=== PATIENT | male | born 1940 | race Caucasian/White ===

== ENCOUNTER 2018-10-25 21:36 | Inpatient (IN) | payer MEDICARE, MEDICAID ==
[~2018-10-25] VITALS: Ht 182.9 cm; Wt 82.0 kg
--- NOTE | 2018-10-25 22:10 | NUR ---
PT IVY SMITH FROM HOME AFTER PT HAS HAD MULTIPLE CALL IN THE LAST 2 DAYS AFTER PT PUSHED HIS LIFELINE BUTTON AFTER FALLING. MICHAEL REPORTED THEY HAD BEEN TO HIS HOUSE 4 TIMES IN LAST 2 DAYS WITH FIRST TRANSPORT TO [facility]. PT REPORTS "LEGS HURT" AND CAN'T WALK. PT WAS 79% ON RA PER [facility] ADVERTISING SUPERVISOR. 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 PT A+o x 4.
--- NOTE | 2018-10-25 22:17 | NUR ---
report of pt from chaparrita chaves and assuming care of pt at this time.
--- NOTE | 2018-10-25 22:17 | NUR ---
Angelina mcknight in [facility] - 10/25/18 at 2240 by SIXTO report of pt from chaparrita chaves and assuming care of pt at this time.
--- NOTE | 2018-10-25 22:39 | NUR ---
pt to ct via jackie
[2018-10-25 23:11] LABS: ALANINE AMINOTRANSFERASE 35 U/L (12-78); ALBUMIN 3.9 g/dL (3.4-5.0); ANION GAP 9 mmol/L (5-15); CALCIUM 8.8 mg/dL (8.5-10.1); CHLORIDE 113 mmol/L (98-107); CREATININE 1.23 mg/dL (0.7-1.3)
[2018-10-25 23:16] LABS: ALKALINE PHOSPHATASE 58 U/L (45-117); BILIRUBIN,TOTAL 0.9 mg/dL (0.2-1.0); TOTAL PROTEIN 7.3 g/dL (6.4-8.2); TROPONIN I 0.018 ng/mL (0.000-0.045)
[2018-10-25 23:57] LABS: MEAN CORPUSCULAR HEMOGLOBIN 31.6 pg (27.5-34.5); MEAN CORPUSCULAR HGB CONC 34.2 g/dL (33.2-36.2); MEAN CORPUSCULAR VOLUME 92.3 fL (81-97); MEAN PLATELET VOLUME 9.5 fL (7.4-10.4); PLATELET COUNT 160 x10^3/uL (130-400); RED BLOOD COUNT 4.67 x10^6/uL (4.38-5.82); RED CELL DISTRIBUTION WIDTH 13.6 % (9.4-14.8)
[2018-10-26 00:07] LABS: MD YES
[2018-10-26 00:28] LABS: BASOS#(MANUAL) 0.19 x10^3/uL (0-0.1); BASOS% (MANUAL) 1 % (0-1); LYMPH#(MANUAL) 2.63 x10^3/uL (1-3.4); LYMPHS% (MANUAL) 14 % (22-44); MONOS#(MANUAL) 0.75 x10^3/uL (0.3-2.7); MONOS% (MANUAL) 4 % (2-9); SEG#(MANUAL) 15.23 x10^3/uL (1.8-6.8); SEGS% (MANUAL) 81 % (42-75)
[2018-10-26 00:29] LABS: <PLATELET ESTIMATE> ADEQUATE; <PLT MORPHOLOGY> NORMAL PLT MORPH; <RBC MORPHOLOGY> NORMAL
[2018-10-26] MEDS ORDERED: LIDOCAINE 2%,20 ML JEL.PF.APP MM ONE (00:30)
[2018-10-26 00:53] LABS: MICROSCOPIC AUTO
[2018-10-26 00:54] LABS: CULTURE INDICATED? NO
[2018-10-26] MEDS ORDERED: LABETALOL 5MG/ML, 20ML IVPush PRN (02:00)
[2018-10-26] MEDS ORDERED: ACETAMINOPHEN 325 MG TABLET PO PRN (02:00)
--- NOTE | 2018-10-26 02:28 | NUR ---
report of pt to chaparrita almaguer. all questions answered. iv access obtained. pt transported to floor by trauma rn and tech.
[2018-10-26 02:36] VITALS: BP 132/76
[2018-10-26 02:45] VITALS: BP 132/76
[2018-10-26] MEDS ORDERED: LABETALOL 5 MG/ML SYRINGE IVPush PRN (03:00)
[2018-10-26] MEDS: HEPARIN 5,000 UNITS/ML, 1ML SQ SCH ×3 (05:48→20:46)
[2018-10-26 07:49] VITALS: BP 123/72
[2018-10-26] MEDS ORDERED: METOPROLOL TARTRATE 50 MG TABLET PO SCH (09:00)
[2018-10-26] MEDS ORDERED: PLEASE ENTER ALLERGIES MC SCH (12:30)
[2018-10-26] MEDS ORDERED: AMPICILLIN/SULBACTAM 3 GM in SODIUM CHLORIDE 0.9% 100 ML IV SCH (12:30)
[2018-10-26] MEDS: SODIUM CHLORIDE 0.9% 1,000 ML IV SCH ×2 (12:30→20:46)
[2018-10-26] MEDS ORDERED: MAGNESIUM SULFATE PMX 2GM/50ML 50 ML IV ONE ×2 (12:30→14:30)
[2018-10-26 12:44] LABS: BASOPHILS # (AUTO) 0.11 x10^3/uL (0-0.1); BASOPHILS % (AUTO) 1 % (0-1); EOSINOPHILS # (AUTO) 0.08 x10^3/uL (0-0.4); EOSINOPHILS % (AUTO) 1 % (1-7); LYMPHOCYTES # (AUTO) 1.86 x10^3/uL (1-3.4); LYMPHOCYTES % (AUTO) 15 % (22-44); MD NO; MEAN CORPUSCULAR HGB CONC 34.3 g/dL (33.2-36.2); MEAN CORPUSCULAR VOLUME 93.2 fL (81-97); MEAN PLATELET VOLUME 9.5 fL (7.4-10.4); MONOCYTES # (AUTO) 1.06 x10^3/uL (0.2-0.8); MONOCYTES % (AUTO) 8 % (2-9); NEUTROPHILS # (AUTO) 9.44 x10^3/uL (1.8-6.8); NEUTROPHILS % (AUTO) 75 % (42-75); PLATELET COUNT 151 x10^3/uL (130-400); RED BLOOD COUNT 4.12 x10^6/uL (4.38-5.82); RED CELL DISTRIBUTION WIDTH 13.8 % (9.4-14.8)
[2018-10-26 12:56] LABS: ALANINE AMINOTRANSFERASE 57 U/L (12-78); ALBUMIN 3.6 g/dL (3.4-5.0); ANION GAP 6 mmol/L (5-15); CALCIUM 8.6 mg/dL (8.5-10.1); CHLORIDE 111 mmol/L (98-107); CREATININE 1.09 mg/dL (0.7-1.3)
[2018-10-26 13:07] LABS: ALKALINE PHOSPHATASE 55 U/L (45-117); BILIRUBIN,TOTAL 0.8 mg/dL (0.2-1.0); FREE T4 (FREE THYROXINE) 0.89 ng/dL (0.76-1.46); TOTAL PROTEIN 6.9 g/dL (6.4-8.2)
[2018-10-26] MEDS ORDERED: MAGNESIUM SULFATE 2 GM in SODIUM CHLORIDE 0.9% 50 ML IV ONE (14:30)
[2018-10-26 14:48] VITALS: BP 105/62
[2018-10-26 15:44] LABS: AMPHETAMINE SCREEN, URINE Negative (Negative); BARBITURATE SCREEN, URINE Negative (Negative); BENZODIAZEPINE SCREEN, URINE Negative (Negative); CANNABINOID SCREEN, URINE Negative (Negative); COCAINE SCREEN, URINE Negative (Negative); METHADONE SCREEN, URINE Negative (Negative); OPIATE SCREEN, URINE Negative (Negative)
[2018-10-26] MEDS ORDERED: OMNIPAQUE 350 MG/ML, 100ML BOTTLE ONE (17:02)
[2018-10-26] MEDS ORDERED: SODIUM CHLORIDE 0.9% IV SCH (17:30)
[2018-10-26] MEDS ORDERED: LINEZOLID PMX 600MG/300ML 300 ML IV SCH (17:30)
[2018-10-26] MEDS ORDERED: ACYCLOVIR IV SCH (17:30)
[2018-10-26] MEDS ORDERED: LABETALOL 5MG/ML, 20ML IV PRN (18:00)
[2018-10-26 18:14] LABS: INTERNATIONAL NORMALIZED RATIO 1.02 (0.93-1.1); PROTHROMBIN TIME 10.7 Seconds (9.6-11.5)
[2018-10-26] MEDS: ATORVASTATIN 40 MG TABLET PO SCH (20:45)
[2018-10-26] MEDS: PIPERACILLIN/TAZO/PMX 3.375GM 50 ML IV SCH (21:20)
[2018-10-27 04:00] VITALS: BP 116/60
[2018-10-27] MEDS: PIPERACILLIN/TAZO/PMX 3.375GM 50 ML IV SCH (04:02)
[2018-10-27 04:30] LABS: BASOPHILS # (AUTO) 0.07 x10^3/uL (0-0.1); BASOPHILS % (AUTO) 1 % (0-1); EOSINOPHILS # (AUTO) 0.12 x10^3/uL (0-0.4); EOSINOPHILS % (AUTO) 1 % (1-7); LYMPHOCYTES % (AUTO) 11 % (22-44); MD NO; MEAN CORPUSCULAR HEMOGLOBIN 31.6 pg (27.5-34.5); MEAN CORPUSCULAR VOLUME 93.1 fL (81-97); MEAN PLATELET VOLUME 9.7 fL (7.4-10.4); MONOCYTES # (AUTO) 0.96 x10^3/uL (0.2-0.8); MONOCYTES % (AUTO) 7 % (2-9); NEUTROPHILS # (AUTO) 10.93 x10^3/uL (1.8-6.8); NEUTROPHILS % (AUTO) 81 % (42-75); PLATELET COUNT 142 x10^3/uL (130-400); RED BLOOD COUNT 4.28 x10^6/uL (4.38-5.82); RED CELL DISTRIBUTION WIDTH 13.6 % (9.4-14.8)
[2018-10-27 04:50] LABS: ANION GAP 7 mmol/L (5-15); CALCIUM 8.2 mg/dL (8.5-10.1); CHLORIDE 107 mmol/L (98-107); CREATININE 0.92 mg/dL (0.7-1.3); TRIGLYCERIDES 120 mg/dL (50-200); VLDL CHOLESTEROL 24 mg/dL (0-25)
[2018-10-27 04:54] LABS: CHOL/HDL RATIO 2.3; CHOLESTEROL, TOTAL 100 mg/dL (140-239); HDL CHOLESTEROL (DIRECT) 44 mg/dL (40-60)
[2018-10-27 04:55] LABS: HDL CHOL % 44 % (26-37); LDL CHOLESTEROL,CALCULATED 32 mg/dL (54-169); LDL/HDL RATIO 0.7 (0.5-3.0)
[2018-10-27] MEDS: HEPARIN 5,000 UNITS/ML, 1ML SQ SCH ×3 (05:16→21:00)
[2018-10-27] MEDS ORDERED: ASPIRIN 81 MG TABLET CHEW PO/NG SCH (09:00)
[2018-10-27] MEDS: SODIUM CHLORIDE 0.9% 1,000 ML IV SCH ×3 (09:38→20:30)
[2018-10-27 12:09] VITALS: BP 103/55
--- NOTE | 2018-10-27 16:42 | NUR ---
REC: NPO with Dobhoff (in place) except limited ice chips with supervision when awake/alert Addendum: 10/27/18 at 1643 by Dana RUDD Amended: Links added.
[2018-10-27 19:14] VITALS: BP 113/59
[2018-10-27] MEDS: ATORVASTATIN 40 MG TABLET PO SCH (21:17)
[2018-10-27] MEDS: D5%-0.9% NACL 1,000 ML IV SCH (21:17)
[2018-10-27 22:20] VITALS: BP 130/71
[2018-10-28 01:24] VITALS: BP 129/67
[2018-10-28 04:10] VITALS: BP 91/75
[2018-10-28] MEDS: SODIUM CHLORIDE 0.9% 1,000 ML IV SCH ×3 (04:30→20:16)
[2018-10-28] MEDS: HEPARIN 5,000 UNITS/ML, 1ML SQ SCH ×3 (05:15→20:16)
[2018-10-28 07:14] VITALS: BP 136/65
[2018-10-28] MEDS: D5%-0.9% NACL 1,000 ML IV SCH ×2 (07:29→17:52)
[2018-10-28] MEDS ORDERED: ASPIRIN 300 MG SUPP PR SCH (09:00)
[2018-10-28 13:50] VITALS: BP 144/84
--- NOTE | 2018-10-28 16:32 | NUR ---
PUREE/NTL; swallow precautions sheet posted at bedside Addendum: 10/29/18 at [address] Amended: Links added.
[2018-10-28 19:00] VITALS: BP 129/75
[2018-10-28] MEDS: ATORVASTATIN 40 MG TABLET PO SCH (20:15)
[2018-10-29 01:36] VITALS: BP 138/73
[2018-10-29] MEDS: D5%-0.9% NACL 1,000 ML IV SCH (03:00)
[2018-10-29] MEDS: SODIUM CHLORIDE 0.9% 1,000 ML IV SCH ×2 (04:30→16:13)
[2018-10-29 04:57] VITALS: BP 129/78
[2018-10-29 05:23] LABS: BASOPHILS # (AUTO) 0.03 x10^3/uL (0-0.1); BASOPHILS % (AUTO) 0 % (0-1); EOSINOPHILS # (AUTO) 0.19 x10^3/uL (0-0.4); EOSINOPHILS % (AUTO) 2 % (1-7); LYMPHOCYTES # (AUTO) 1.41 x10^3/uL (1-3.4); LYMPHOCYTES % (AUTO) 16 % (22-44); MD NO; MEAN CORPUSCULAR HEMOGLOBIN 31.8 pg (27.5-34.5); MEAN CORPUSCULAR HGB CONC 34.3 g/dL (33.2-36.2); MEAN CORPUSCULAR VOLUME 92.7 fL (81-97); MEAN PLATELET VOLUME 9.7 fL (7.4-10.4); MONOCYTES # (AUTO) 0.75 x10^3/uL (0.2-0.8); MONOCYTES % (AUTO) 8 % (2-9); NEUTROPHILS # (AUTO) 6.58 x10^3/uL (1.8-6.8); NEUTROPHILS % (AUTO) 74 % (42-75); PLATELET COUNT 137 x10^3/uL (130-400); RED BLOOD COUNT 4.16 x10^6/uL (4.38-5.82); RED CELL DISTRIBUTION WIDTH 13.4 % (9.4-14.8)
[2018-10-29 05:34] LABS: ALBUMIN 2.8 g/dL (3.4-5.0); ANION GAP 5 mmol/L (5-15); CALCIUM 8.2 mg/dL (8.5-10.1); CHLORIDE 109 mmol/L (98-107)
[2018-10-29 05:37] LABS: ALANINE AMINOTRANSFERASE 75 U/L (12-78); ALKALINE PHOSPHATASE 53 U/L (45-117); BILIRUBIN,TOTAL 0.6 mg/dL (0.2-1.0); CREATININE 0.75 mg/dL (0.7-1.3); TOTAL PROTEIN 6.1 g/dL (6.4-8.2)
[2018-10-29] MEDS: HEPARIN 5,000 UNITS/ML, 1ML SQ SCH ×2 (06:05→16:12)
[2018-10-29] MEDS ORDERED: POTASSIUM CHLORIDE 20 MEQ TAB.ER.PRT NG ONE (07:00)
[2018-10-29 07:34] VITALS: BP 131/72
[2018-10-29] MEDS ORDERED: ASPIRIN 300 MG SUPP PR SCH (09:00)
[2018-10-29] MEDS ORDERED: ACETAMINOPHEN 325 MG SUPP PR SCH (09:00)
[2018-10-29] MEDS ORDERED: POTASSIUM CHLORIDE 10% 40 MEQ/30 ML UDC JT ONE (10:30)
[2018-10-29] MEDS: ASPIRIN 325 MG TABLET PO SCH (10:57)
[2018-10-29 13:17] VITALS: BP 115/64
[2018-10-29] MEDS: CLOPIDOGREL 75 MG TABLET PO SCH (16:11)
[2018-10-29 19:02] VITALS: BP 150/74
[2018-10-29] MEDS: ATORVASTATIN 40 MG TABLET PO SCH (20:48)
[2018-10-30] MEDS: SODIUM CHLORIDE 0.9% 1,000 ML IV SCH ×3 (00:33→14:19)
[2018-10-30] MEDS: HEPARIN 5,000 UNITS/ML, 1ML SQ SCH ×3 (00:33→16:46)
[2018-10-30 01:27] VITALS: BP 137/74
[2018-10-30 04:10] VITALS: BP 136/70
[2018-10-30] MEDS: ASPIRIN 325 MG TABLET PO SCH ×2 (05:28→05:36)
[2018-10-30 06:29] LABS: ALBUMIN 2.9 g/dL (3.4-5.0); ANION GAP 6 mmol/L (5-15); CALCIUM 8.4 mg/dL (8.5-10.1); CHLORIDE 112 mmol/L (98-107); CREATININE 0.75 mg/dL (0.7-1.3)
[2018-10-30 07:56] VITALS: BP 134/58
[2018-10-30] MEDS: CLOPIDOGREL 75 MG TABLET PO SCH (09:00)
[2018-10-30 13:00] VITALS: BP 131/77
[2018-10-30 19:43] VITALS: BP 122/72
[2018-10-30] MEDS: ATORVASTATIN 40 MG TABLET PO SCH (20:48)
[2018-10-31] MEDS: HEPARIN 5,000 UNITS/ML, 1ML SQ SCH ×2 (00:13→11:05)
[2018-10-31 01:38] VITALS: BP 134/73
[2018-10-31 04:25] VITALS: BP 159/68
[2018-10-31] MEDS: SODIUM CHLORIDE 0.9% 1,000 ML IV SCH (04:30)
[2018-10-31 05:55] LABS: ALBUMIN 3.1 g/dL (3.4-5.0); ANION GAP 7 mmol/L (5-15); CALCIUM 8.6 mg/dL (8.5-10.1); CHLORIDE 109 mmol/L (98-107); CREATININE 0.77 mg/dL (0.7-1.3)
[2018-10-31] MEDS: ASPIRIN 325 MG TABLET PO SCH (06:00)
[2018-10-31 10:33] VITALS: BP 123/73
[2018-10-31] MEDS: ASPIRIN 81 MG TABLET CHEW PO SCH ×2 (11:05→13:03)
[2018-10-31] MEDS: CLOPIDOGREL 75 MG TABLET PO SCH ×2 (11:05→13:03)
[2018-10-31 13:42] VITALS: BP 110/63
[2018-10-31] MEDS ORDERED: ASPI-515 PO (14:26)
[2018-10-31] MEDS ORDERED: ACET325T14 PO (14:26)
[2018-10-31] MEDS ORDERED: ATOR40TA78 PO (14:26)
[2018-10-31] MEDS ORDERED: CLOP75TA PO (14:26)
== END 2018-11-01 05:17 | disposition hospice, home (50) | DRG 64 ==
LOC: ED 10-26 → EDIP 10-26 01:40 → 4NOR 10-26 02:30 → 4WST 10-26 14:08 → CCU 10-26 17:35 → 4WST 10-27 11:49
PROVIDERS: ADMIT Family Medicine; ATTEND Family Medicine
PROC: 0T9B80Z Drainage of Bladder with Drainage Device, Via Natural or Artificial Opening Endoscopic (ICD-10-PCS; principal; 2018-10-26)
PROC: 0T9B70Z Drainage of Bladder with Drainage Device, Via Natural or Artificial Opening (ICD-10-PCS; 2018-10-26)
DX: I63.9 Cerebral infarction, unspecified (principal); G93.41 Metabolic encephalopathy; G93.40 Encephalopathy, unspecified; S37.30XA Unspecified injury of urethra, initial encounter; I69.354 Hemiplegia and hemiparesis following cerebral infarction affecting left non-dominant side; I65.21 Occlusion and stenosis of right carotid artery; D72.829 Elevated white blood cell count, unspecified; E78.00 Pure hypercholesterolemia, unspecified; E78.5 Hyperlipidemia, unspecified; F17.200 Nicotine dependence, unspecified, uncomplicated; I10 Essential (primary) hypertension; I25.10 Atherosclerotic heart disease of native coronary artery without angina pectoris; J44.9 Chronic obstructive pulmonary disease, unspecified; K21.9 Gastro-esophageal reflux disease without esophagitis; K57.90 Diverticulosis of intestine, part unspecified, without perforation or abscess without bleeding; Z60.2 Problems related to living alone; Z51.5 Encounter for palliative care; I71.4 Abdominal aortic aneurysm, without rupture; I95.9 Hypotension, unspecified; K76.0 Fatty (change of) liver, not elsewhere classified; N32.89 Other specified disorders of bladder; N40.1 Benign prostatic hyperplasia with lower urinary tract symptoms; R09.02 Hypoxemia; R13.10 Dysphagia, unspecified; R33.8 Other retention of urine; R62.7 Adult failure to thrive; W18.39XA Other fall on same level, initial encounter; I65.01 Occlusion and stenosis of right vertebral artery; Z66 Do not resuscitate; Z95.5 Presence of coronary angioplasty implant and graft; Y93.89 Activity, other specified; Y92.89 Other specified places as the place of occurrence of the external cause; Y99.8 Other external cause status
CPT/HCPCS: 36415; 36600; 70450; 70496; 70498; 70551; 71045; 71260; 73523; 74018; 74177; 80048; 80053; 80061; 80307; 81001; 82040; 82140; 82607; 82803; 82962; 83605; 83735; 83880; 84100; 84439; 84443; 84484; 85025; 85610; 85730; 86592; 87040; 87081; 93005; 93306; 95819; 99285; G0378; J1644; J2020; J2543; J7042; Q9967; J3475; J7030